=== PATIENT | female | born 1965 | race African-American/Black ===

== ENCOUNTER → 2016-12-14 | Outpatient (CLI) | payer BC ==
[2015-08-01 11:00] VITALS: BP 93/57
[~2016-12-14] MED LIST: HYDR-2678 PO; HYDR-2758 PO; HYDR-971 PO; IBUP200T43 PO; LEVO25TA4 PO; LISI1TAB7 PO
--- NOTE | 2016-12-16 13:00 | RAD ---
DATE: 12/16/2016. EXAM: DIGITAL SCREEN BILAT W/CAD. HISTORY: Routine mammographic screening. COMPARISON: None available. This is interpreted as a baseline study.. This study was interpreted with the benefit of Computerized Aided Detection (CAD). FINDINGS: The breast parenchyma shows scattered fibroglandular densities. Breast parenchyma level B.. There is a nodule deep to the right nipple on the MLO projection, slightly laterally on the CC view. This may represent a lymph node. A skin fold results in a density along the central breast on the MLO view. There is no suspicious correlate on the CC projection. Scattered calcifications on the left appear benign. There is no suspicious finding on the left. BI-RADS CATEGORY: 0 INCOMPLETE: NEEDS ADDITIONAL IMAGING EVALUATION AND/OR PRIOR MAMMOGRAMS FOR COMPARISON.. RECOMMENDED FOLLOW-UP: ADD ADDITIONAL IMAGING. Marked compression and sonography of the nodule on the right are recommended baseline. See annotations. PQRS compliance statement: Patient information was entered into a reminder system with a target due date (now) for the next mammogram. Mammography is a sensitive method for finding small breast cancers, but it does not detect them all and is not a substitute for careful clinical examination. A negative mammogram does not negate a clinically suspicious finding and should not result in delay in biopsying a clinically suspicious abnormality. "Our facility is accredited by the [employer] Mammography [employer]."
== END | disposition home or self-care (01) ==
LOC: MAMMO 08:45
PROVIDERS: ATTEND Family Medicine
DX: Z12.31 Encounter for screening mammogram for malignant neoplasm of breast (principal)
CPT/HCPCS: G0202; 77067

== ENCOUNTER → 2017-01-08 | Outpatient (CLI) | payer BC ==
[2015-08-01 11:00] VITALS: BP 93/57
--- NOTE | 2017-01-08 09:09 | RAD ---
DATE: 01/08/2017. EXAM: DIGITAL DIAGNOSTIC RT, ULTRASOUND BREAST RIGHT. HISTORY: Density on mammographic screening. Additional views and sonography are requested. COMPARISON: 12/14/2016. This study was interpreted with the benefit of Computerized Aided Detection (CAD). FINDINGS: The breast parenchyma shows scattered fibroglandular densities. Breast parenchyma level B.. The density of concern slightly lateral to the right nipple resolves to a parenchymal density on spot compression. Ultrasound at the 9:00 position of concern reveals a few mildly prominent ducts. There is no suspicious sonographic finding. BI-RADS CATEGORY: 2 BENIGN FINDING(S). RECOMMENDED FOLLOW-UP: 12M 12 MONTH FOLLOW-UP. PQRS compliance statement: Patient information was entered into a reminder system with a target due date 12/14/2017 for the next mammogram. Mammography is a sensitive method for finding small breast cancers, but it does not detect them all and is not a substitute for careful clinical examination. A negative mammogram does not negate a clinically suspicious finding and should not result in delay in biopsying a clinically suspicious abnormality. "Our facility is accredited by the [employer] Mammography [employer]."
== END | disposition home or self-care (01) ==
LOC: MAMMO 07:52
PROVIDERS: ATTEND Family Medicine
DX: N63.10 Unspecified lump in the right breast, unspecified quadrant (principal)
CPT/HCPCS: 76641; G0206; 77065

== ENCOUNTER → 2018-04-03 | Outpatient (CLI) | payer OTHER ==
[2015-08-01 11:00] VITALS: BP 93/57
[~2018-04-03] MED LIST changes: -HYDR-2758 PO; +HYDR-2761 PO; +HYDR-3164 PO; -HYDR-971 PO; -IBUP200T43 PO; +IBUP200T44 PO
--- NOTE | 2018-04-06 11:41 | RAD ---
DATE: 04/03/2018 EXAM: MAMMO DEEPIKA SCREENING BILATERAL HISTORY: Routine screening COMPARISON: 12/14/2016, 01/08/2017 This study was interpreted with the benefit of Computerized Aided Detection (CAD). Breast Density: SCATTERED The breast parenchyma shows scattered fibroglandular densities. Breast parenchyma level B. FINDINGS: 2-D and 3-D tomosynthesis imaging was performed in CC and MLO projections. There are couple of tiny smooth nodules in both breasts, better demonstrated on the current 3-D images. Bilateral smooth nodule such as this tend to be benign. No spiculated mass or architectural distortion is evident. No suspicious microcalcifications are evident. IMPRESSION: There is no mammographic evidence of malignancy in either breast. BI-RADS CATEGORY: 2 BENIGN FINDING(S) RECOMMENDED FOLLOW-UP: 12M 12 MONTH FOLLOW-UP PQRS compliance statement: Patient information was entered into a reminder system with a target due date for the next mammogram. Mammography is a sensitive method for finding small breast cancers, but it does not detect them all and is not a substitute for careful clinical examination. A negative mammogram does not negate a clinically suspicious finding and should not result in delay in biopsying a clinically suspicious abnormality. "Our facility is accredited by the [employer] Mammography [employer]."
== END | disposition home or self-care (01) ==
LOC: MAMMO 14:12
PROVIDERS: ATTEND Family Medicine
DX: Z12.31 Encounter for screening mammogram for malignant neoplasm of breast (principal); F17.210 Nicotine dependence, cigarettes, uncomplicated
CPT/HCPCS: 77063; 77067

== ENCOUNTER → 2018-12-07 | Outpatient (CLI) | payer OTHER ==
[2015-08-01 11:00] VITALS: BP 93/57
[~2018-12-07] MED LIST changes: +LISI1TAB20 PO; -LISI1TAB7 PO
--- NOTE | 2018-12-07 09:46 | RAD ---
EXAM: PA and Lateral Views of the Chest DATE: 12/07/2018 12:00 AM INDICATION: COPD (CHRONIC OBSTRUCTIVE PULMONARY DISEASE) COMPARISON: 12/25/2009 FINDINGS: The heart is not enlarged. Mediastinal and hilar contours are normal. No focal parenchymal airspace opacity. Calcified granuloma left midlung. No pleural effusion or pneumothorax. IMPRESSION: 1. No radiographic evidence for acute cardiopulmonary process. Electronically signed by: Nicola Mercado MD (12/07/2018 9:43 AM) [facility] [place]
== END | disposition home or self-care (01) ==
LOC: RAD 08:35
PROVIDERS: ATTEND Internal Medicine Pulmonary Disease
DX: J84.10 Pulmonary fibrosis, unspecified (principal); J44.9 Chronic obstructive pulmonary disease, unspecified
CPT/HCPCS: 71046

== ENCOUNTER → 2018-12-25 | Outpatient (CLI) | payer OTHER ==
[2015-08-01 11:00] VITALS: BP 93/57
[~2018-12-25] MED LIST changes: +IOHEXOL 240 MG/ML 50ML VIAL. PO ONE; +IOHEXOL 300 MG/ML 100ML VIAL. IV ONE
--- NOTE | 2018-12-25 16:27 | RAD ---
EXAM: Abdomen and pelvis CT with intravenous contrast. HISTORY: Pain. TECHNIQUE: Computed tomographic images of the abdomen and pelvis were obtained following the administration of 75 cc Omnipaque 300 intravenous contrast. Multiplanar reformatting was performed. *One or more of the following individualized dose reduction techniques were utilized for this examination: 1. Automated exposure control. 2. Adjustment of the mA and/or kV according to patient size. 3. Use of iterative reconstruction technique. COMPARISON: None. FINDINGS: Evaluation of the lower thorax is unremarkable. There is slight fatty infiltration of the liver along the falciform ligament. The liver is upper normal in size. No suspicious hepatic lesion is seen. The gallbladder contains a phrygian cap, a normal variant. The spleen is upper normal in size. There is a small splenule adjacent to the splenic hilum. The pancreas is unremarkable. There is adrenal gland thickening without a discrete nodule. The kidneys are unremarkable. There is no appendicitis. There is no bowel obstruction. There is colonic diverticulosis. There is no convincing diverticulitis. There is slight increased colonic wall fat, a finding which can be seen as a sequela of prior inflammation. There is a tiny fat-containing umbilical hernia. There is urinary bladder wall thickening, a component of which is due to underdistention. The uterus is surgically absent. No adnexal lesion is seen. There is no lymphadenopathy. There is no suspicious osseous lesion. IMPRESSION: 1. Colonic diverticulosis. 2. Urinary bladder wall thickening. This is greater than expected for bladder decompression and possibly due to cystitis. Correlate with urinalysis. 3. Bilateral adrenal gland thickening without a discrete nodule. Electronically signed by: Aggie Pickering MD (12/25/2018 4:23 PM) [place] [id number]
== END | disposition home or self-care (01) ==
LOC: CT 10:32
PROVIDERS: ATTEND Family Medicine
DX: K57.30 Diverticulosis of large intestine without perforation or abscess without bleeding (principal)
CPT/HCPCS: 74177; Q9966; Q9967

== ENCOUNTER 2019-10-30 00:03 | Emergency (ER) | payer OTHER ==
[2015-08-01 11:00] VITALS: BP 93/57
[~2019-10-30 00:03] MED LIST changes: -IOHEXOL 240 MG/ML 50ML VIAL. PO ONE; -IOHEXOL 300 MG/ML 100ML VIAL. IV ONE
== END 2019-10-30 00:38 | disposition left against medical advice (07) ==
LOC: ER 00:03
DX: M79.675 Pain in left toe(s) (principal); Z53.21 Procedure and treatment not carried out due to patient leaving prior to being seen by health care provider

== ENCOUNTER → 2020-02-04 | Outpatient (CLI) | payer OTHER ==
[2015-08-01 11:00] VITALS: BP 93/57
--- NOTE | 2020-02-04 14:04 | RAD ---
PROCEDURE: TOES LEFT, FOOT LEFT 3V STUDY DATE: 02/04/2020 CLINICAL INDICATION / HISTORY: Reason: ORDERED 2 VIEW. LT 4TH TOE PAIN X 2 MONTHS / Spl. Instructions: / History: . TECHNIQUE: AP, lateral and oblique views of the left foot. COMPARISON: X-rays of the left fourth toe obtained the same day FINDINGS: No fracture or dislocation is identified. The bone density is normal. The joint space widths are maintained, and there are no erosions to suggest an inflammatory arthropathy. No soft tissue abnormality is seen. IMPRESSION: No acute osseous abnormality. PROCEDURE: TOES LEFT, FOOT LEFT 3V STUDY DATE: 02/04/2020 CLINICAL INDICATION / HISTORY: Reason: ORDERED 2 VIEW. LT 4TH TOE PAIN X 2 MONTHS / Spl. Instructions: / History: . TECHNIQUE: AP and lateral views of the left fourth toe were obtained. COMPARISON: Left foot x-rays of the same day FINDINGS: Subtle lucency through the lateral base of the proximal fifth toe is present that in the appropriate clinical context could represent a nondisplaced hairline fracture. No associated soft tissue swelling. No significant degenerative changes. The rest of exam is unremarkable. IMPRESSION: Possible healing fracture on the lateral base of the proximal fourth toe. Electronically signed by: Stacey Ponce MD (02/04/2020 2:01 PM) [id number]
== END ==
LOC: RAD 12:32
PROVIDERS: ATTEND Family Medicine
DX: M79.672 Pain in left foot (principal)
CPT/HCPCS: 73630; 73660

== ENCOUNTER → 2020-11-01 | Outpatient (CLI) | payer OTHER ==
[2015-08-01 11:00] VITALS: BP 93/57
--- NOTE | 2020-11-01 08:23 | RAD ---
INDICATION: Reason: Left FLANK PAIN x 1 month / Spl. Instructions: / History: . COMPARISON: December 2018 TECHNIQUE: Axial CT images obtained through the abdomen and pelvis without contrast. One or more of the following individualized dose reduction techniques were utilized for this examinat ion: 1. Automated exposure control; 2. Adjustment of the mA and/or kV according to patient size; 3 . Use of iterative reconstruction technique. FINDINGS: Cystic changes at the lung bases. Scattered calcific atherosclerosis. Fat-containing umbilical hernia. No intrahepatic bile duct dilation. Liver is prominent in size. No peripancreatic fluid collection. Calcified granuloma spleen. Low-density thickening of the bilateral adrenal glands which can be from causes such as hyperplasia. No hydronephrosis. Urinary bladder partially distended. Colonic diverticulosis. No periappendiceal inflammatory changes. No dilated loops of bowel to suggest obstruction. 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 Degenerative changes of the sacroiliac joints and spine IMPRESSION: * No evidence of bowel obstruction or appendicitis. * No hydronephrosis. Electronically signed by: Kyle Garcia MD (11/01/2020 8:20 AM) [id number]
== END ==
LOC: CT 09:05
PROVIDERS: ATTEND Family Medicine
DX: K42.9 Umbilical hernia without obstruction or gangrene (principal); J98.4 Other disorders of lung; K57.30 Diverticulosis of large intestine without perforation or abscess without bleeding; M47.819 Spondylosis without myelopathy or radiculopathy, site unspecified; M19.09 Primary osteoarthritis, other specified site
CPT/HCPCS: 74176

== ENCOUNTER → 2020-11-02 | Outpatient (CLI) | payer OTHER ==
[2015-08-01 11:00] VITALS: BP 93/57
[2020-11-02 13:34] LABS: BASO # 0.1 x10^3/uL (0.0-0.2); BASO % 1 % (0-3); EOS # 0.1 x10^3/uL (0.0-0.7); EOS % 2 % (0-3); HEMATOCRIT 43.2 % (36.0-47.0); HEMOGLOBIN 14.3 g/dL (12.0-15.5); LYMPH # 2.5 x10^3/uL (1.0-4.8); LYMPH % 35 % (24-48); MEAN CORPUSCULAR HEMOGLOBIN 28 pg (25-35); MEAN CORPUSCULAR HGB CONC 33 g/dL (31-37); MEAN CORPUSCULAR VOLUME 85 fL (79-100); MONO # 0.6 x10^3/uL (0.0-1.1); MONO % 9 % (0-9); NEUT # 3.7 x10^3/uL (1.8-7.7); NEUT % 53 % (31-73); PLATELET COUNT 293 x10^3/uL (140-400); RED BLOOD COUNT 5.09 x10^6/uL (3.50-5.40); RED CELL DISTRIBUTION WIDTH 14.8 % (11.5-14.5); WHITE BLOOD COUNT 6.9 x10^3/uL (4.0-11.0)
[2020-11-02 13:43] LABS: ALBUMIN/GLOBULIN RATIO 1.1 (1.0-1.7); CALCIUM 8.7 mg/dL (8.5-10.1); CREATININE 0.9 mg/dL (0.6-1.0); GFR 78.4; TOTAL BILIRUBIN 0.2 mg/dL (0.2-1.0); TOTAL PROTEIN 7.6 g/dL (6.4-8.2)
== END ==
LOC: LAB 13:04
PROVIDERS: ATTEND Nurse Practitioner
DX: R30.0 Dysuria (principal); R31.9 Hematuria, unspecified
CPT/HCPCS: 36415; 80053; 85025; 87086

== ENCOUNTER → 2021-07-11 | Outpatient (CLI) | payer OTHER ==
[2015-08-01 11:00] VITALS: BP 93/57
[~2021-07-11] MED LIST changes: -LISI1TAB20 PO; +LISI1TAB39 PO
--- NOTE | 2021-07-11 08:08 | RAD ---
EXAMINATION: XR CHEST 2V CLINICAL HISTORY: COUGH IN LONGTIME SMOKER. EXAM DATE/TIME: 07/11/2021 7:37 AM COMPARISON: 12/07/2018 FINDINGS: Lines, Tubes, and Devices: None. Cardiomediastinal Silhouette: Within normal limits. Lungs and Pleura: Mild bibasilar subsegmental atelectasis and/or scarring, similar to prior study. No evidence of focal airspace consolidation or pleural effusion. Pulmonary vasculature unremarkable. Bones and Soft Tissues: Degenerative changes in the thoracic spine. IMPRESSION: No evidence of acute cardiopulmonary abnormality or significant interval change. Electronically signed by: Zain Gill DO (07/11/2021 8:06 AM) [id number]
== END ==
LOC: RAD 07:28
PROVIDERS: ATTEND Family Medicine
DX: R05.9 Cough, unspecified (principal); M47.814 Spondylosis without myelopathy or radiculopathy, thoracic region
CPT/HCPCS: 71046